=== PATIENT | female | born 1990 | race Caucasian/White ===

== ENCOUNTER 2016-11-17 18:50 | Emergency (ER) | payer OTHER ==
[2016-11-17 18:59] VITALS: BP 119/91; PULSE 90; TEMP 98.1; BMI 34.4
--- NOTE | 2016-11-17 19:39 | PDOC ---
History of Present Illness - General Chief Complaint: Rash Stated Complaint: RING WORMS Time Seen by Provider: 11/17/16 19:03 History Source: Patient Exam Limitations: No Limitations - History of Present Illness Initial Comments: 11/17/16 19:33 Mom here with complaints of patchy rash scaling to right wrist and behind left knee. States is mildly pruritic, was told may be ringworm but has been using clotrimazole twice a day as prescribed with no result. States suffers from asthma and has had patches of eczema and wonders if is same. Fever, shortness of breath, swelling to lips tongue or face. Timing/Duration: reports: constant, changing over time Associated Symptoms: reports: change in skin texture, fever Past History - Travel Traveled outside of the country in the last 30 days: No Close contact w/someone who was outside of country & ill: No - Past Medical History Allergies/Adverse Reactions: Allergies Allergy/AdvReac Type Severity Reaction Status Date / Time Penicillins Allergy Mild UNNOWN--FROM Verified 11/17/16 18:59 CHILDHOOD Home Medications: Ambulatory Orders NK [No Known Home Medication] 11/17/16 Anemia: No Asthma: Yes Cancer: No Cardiac Disorders: No CVA: No COPD: No CHF: No Dementia: No Diabetes: No GI Disorders: No Disorders: No HTN: No Hypercholesterolemia: No Liver Disease: No Suicide Attempt (Hx): No Seizures: No Thyroid Disease: No - Surgical History Abdominal Surgery: No Appendectomy: Yes Cardiac Surgery: No Cholecystectomy: Yes Lung Surgery: No Neurologic Surgery: No Orthopedic Surgery: No - Immunization History Immunization Up to Date: Yes - Psycho/Social/Smoking Cessation Hx Anxiety: No Suicidal Ideation: No Smoking Status: No Smoking History: Never smoked Have you smoked in the past 12 months: No Number of Cigarettes Smoked Daily: 2 Hx Alcohol Use: Yes (SOCIAL) Drug/Substance Use Hx: No Substance Use Type: None Hx Substance Use Treatment: No Review of Systems - Review of Systems Able to Perform ROS?: Yes Is the patient limited [place] proficient: Yes Constitutional: Yes: Symptoms Reported, See HPI, Malaise. No: Fever HEENTM: No: Symptoms Reported Respiratory: No: Symptoms reported ABD/GI: No: Symptoms Reported : No: Symptoms Reported Integumentary: Yes: Symptoms Reported, See HPI, Dryness, Lesions, Pruritus ( patches ) All Other Systems: Reviewed and Negative *Physical Exam - Vital Signs Last Vital Signs Temp Pulse Resp BP Pulse Ox 98.1 F 90 20 119/91 97 11/17/16 18:55 11/17/16 18:55 11/17/16 18:55 11/17/16 18:55 11/17/16 18:55 - Physical Exam General Appearance: Yes: Nourished, Appropriately Dressed, Apparent Distress HEENT: positive: TONI, Normal ENT Inspection, TMs Normal, Pharynx Normal Neck: positive: Tender, Supple. negative: Lymphadenopathy (R), Lymphadenopathy (L) Respiratory/Chest: positive: Lungs Clear, Normal Breath Sounds Gastrointestinal/Abdominal: positive: Soft Extremity: positive: Normal Capillary Refill Integumentary: positive: Pale, Other (well-circumscribed erythematous patch to the ulnar aspect of right forearm/wrist with scaling appearance, nonpruritic.) Neurologic: positive: metal sprayer production II-XII NML intact, Fully Oriented, Alert, Normal Mood/ Affect, Normal Response, Motor Strength 5/5 Progress Note - Progress Note Progress Note: Probable eczema flare, encouraged follow-up with dermatitis is patient also suffers from severe acne/ knee on chest. *DC/Admit/Observation/Transfer Diagnosis at time of Disposition: Eczema Qualifiers: Eczema type: unspecified Qualified Code(s): L30.9 - Dermatitis, unspecified - Discharge Dispostion Disposition: HOME Condition at time of disposition: Stable Admit: No - Patient Instructions Printed Discharge Instructions: DI for Atopic Dermatitis - Adult Additional Instructions: Rest, keep cool and dry- avoid strenuous activity or hot /humid environments Less hot showers, no abrasive soaps May use heavy creams like Eucerin or Cetaphil to keep skin moist May apply Aveeno, calamine lotion, [id number] hydrocortisone creams as needed for symptoms May use Benadryl at night for antihistamine, Zyrtec/ Analy or Claritin for daytime antihistamine use to help with itching May use [id number] hydrocortisone cream on all areas except face Try to identify cause for rash and avoid exposures Followup with PMD in one week if no resolution Make appointment with twister tender paper for evaluation when possible
== END 2016-11-17 19:46 | disposition home or self-care (01) ==
LOC: JERFT 18:50
DX: L30.9 Dermatitis, unspecified (principal)
CPT/HCPCS: 99281-25

== ENCOUNTER 2020-11-08 12:44 | Emergency (ER) | payer OTHER ==
[2020-11-08 13:01] VITALS: BP 101/70; PULSE 87; TEMP 98.3; BMI 27.3
== END 2020-11-08 13:44 | disposition home or self-care (01) ==
LOC: JER 12:44
PROC: 0H9HXZZ Drainage of Right Upper Leg Skin, External Approach (ICD-10-PCS; principal; 2020-11-08)
DX: L02.415 Cutaneous abscess of right lower limb (principal)
CPT/HCPCS: 99283-25